=== PATIENT | female | born 1980 | race Caucasian/White ===

== ENCOUNTER 2023-08-04 06:48 | Inpatient (IN) | payer SELFPAY ==
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
[2023-08-04] MEDS: ziprasidone 20 mg/mL SDV IM (07:05)
[2023-08-04] MEDS: LORazepam 2 mg/mL INJ 10 mL MDV IM (07:28)
[2023-08-04] MEDS: water for injection-sterile 10 ML (07:28)
[2023-08-04 08:00] VITALS: PULSE 93; O2SAT 97
[2023-08-04 08:10] LABS: Basophils % 0.4 %; Eosinophils % 0.3 %; Hematocrit 38.1 % (36-47); Lymphocytes # 1.3 10^3/uL (0.8-4.8); Lymphocytes % 12.7 %; Mean Corpuscular HGB Conc 34.9 g/dL (30-55); Mean Corpuscular Hemoglobin 33.8 pg (27-33); Mean Corpuscular Volume 96.7 fl (85-98); Mean Platelet Volume 10.5 fL (7.4-10.4); Monocytes % 10.1 %; Neutrophils % 75.9 %; Nucleated Red Blood Cells % 0 %; Platelet Count 155 10^3/cmm (157-399); Red Blood Count 3.94 10^6/uL (3.85-5.65); Red Cell Distribution Width 13.2 % (12.1-15.1); White Blood Count 10.01 10^3/uL (3.29-11.43)
[2023-08-04 08:39] LABS: Alanine Aminotransferase 54 U/L (0-33); Albumin Level 3.9 g/dL (3.5-5.2); Alkaline Phosphatase 74 U/L (35-105); Anion Gap 24.9 (5-19); Aspartate Amino Transferase 110 U/L (0-32); Blood Urea Nitrogen 13 mg/dL (6-20); Calcium 8.8 mg/dL (8.5-10.5); Carbon Dioxide 19 mmol/L (22-29); Chloride 95 mmol/L (98-107); Globulin 2.7 g/dL (1.3-4.6); Glomerular Filtration Rate 67.7 mL/min (90-130); Glucose 88 mg/dL (65-115); Osmolality Calculated 282 mOsm/kg (285-295); Sodium 136 mmol/L (136-145); Thyroid Stimulating Hormone 2.56 uIU/mL (0.27-4.20); Total Protein 6.6 g/dL (6.6-8.7)
[2023-08-04 08:41] LABS: Salicylate < 0.3 mg/dL (3-10)
[2023-08-04 08:42] LABS: Acetaminophen < 5.0 ug/mL (10-30); Alcohol Level < 10 mg/dL (0-10); Potassium 2.9 mmol/L (3.5-5.1)
--- NOTE | 2023-08-04 08:45 | ECG_ITS ---
[facility] Test Date: 2023-08-04 Pat Name: Kathy Poole Department: Room: Gender: Female Economic Developer: : 1980 Requested By: Dorinda Rhodes Order Number: [id number] Luz MD: Karyn Neil M.D. Measurements Intervals [place] Rate: 99 P: 77 VA: 127 QRS: 56 QRSD: 75 T: 54 QT: 422 QTc: 542 Interpretive Statements SINUS RHYTHM PROLONGED QT INTERVAL Poor R wave progression No previous ECG available for comparison Electronically Signed On 08-05-2023 19:20:01 CDT by Karyn Neil M.D. [id number]
--- NOTE | 2023-08-04 08:55 | PC.NURSE ---
MD aware of potassium. orde for PO potassium recieved and MD okayed to give it when PT wakes up. PT sleeping in room, oxygen sat 97 percent, breathing even and unlabored
[2023-08-04 11:02] LABS: SARS Covid-2 Antigen negative (Negative)
[2023-08-04 11:09] VITALS: PULSE 98; O2SAT 97
[2023-08-04 12:00] VITALS: BP 100/60; PULSE 98; RESP 16; TEMP 36.6; O2SAT 96
[2023-08-04] MEDS: potassium chloride ER 20 mEq Tablet 40 MEQ PO (13:53)
[2023-08-04 14:03] LABS: HCG Qualitative Urine. Negative (Negative)
[2023-08-04 14:04] LABS: Bilirubin Urine 1+ (Negative); Blood Urine Neg (Negative); Glucose Urine UA Norm (Normal); Ketones Urine 3+ (Negative); Leukocyte Esterase Urine Trace (Negative); Nitrate Urine Negative (Negative); Protein Urine 1+ (Negative); Urine Appearance SL Hazy (CLEAR); Urine Color Orange (Yellow); Urobilinogen Urine 1 mg/dL (Negative); pH Urine 5 (5-7)
[2023-08-04 14:10] LABS: Squamous Epithelial Cell Urine 15-25 /hpf (0-5)
[2023-08-04 14:11] LABS: Add Urine Culture? No; Bacteria Urine 1+ /hpf; Hyaline Casts Urine 0-4 /lpf
[2023-08-04 14:12] LABS: Amphetamines Screen Urine Positive (Negative); Barbiturates Screen Urine Negative (Negative); Benzodiazepines Screen Urine Positive (Negative); Cocaine Screen Urine Negative (Negative); Opiate Screen Urine Negative (Negative); PCP Screen Urine Negative (Negative); THC Screen Urine Positive (Negative)
[2023-08-04] MEDS: cefdinir 300 MG CAPSULE PO ×2 (14:32→20:31)
[2023-08-04 16:41] VITALS: BP 97/65; PULSE 101; RESP 18; TEMP 36.6; O2SAT 97
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
[2023-08-04 20:14] VITALS: BP 120/69; PULSE 115; RESP 20; TEMP 37; O2SAT 97
[2023-08-05 06:00] VITALS: BP 103/68; PULSE 71; RESP 16; O2SAT 99
[2023-08-05] MEDS: cefdinir 300 MG CAPSULE PO ×2 (08:33→18:19)
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
[2023-08-05 13:34] VITALS: BP 109/77; PULSE 98; RESP 18; TEMP 37.1; O2SAT 96
[2023-08-05 20:28] VITALS: BP 99/66; PULSE 75; RESP 17; TEMP 36.8; O2SAT 96
[2023-08-05] MEDS: trazodone 50 mg Tablet PO ×2 (20:46→23:42)
[2023-08-05] MEDS: cetylpyridinium Lozenge 1 EACH MUCOUS MEM (23:42)
[2023-08-06 06:00] VITALS: BP 95/65; PULSE 93; RESP 16; TEMP 36.6; O2SAT 96
[2023-08-06] MEDS: cefdinir 300 MG CAPSULE PO ×2 (08:57→17:29)
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
[2023-08-06] MEDS: cetylpyridinium Lozenge 1 EACH MUCOUS MEM ×2 (13:10→20:03)
[2023-08-06 14:00] VITALS: BP 99/64; PULSE 71; RESP 20; TEMP 36.6; O2SAT 98
[2023-08-06] MEDS: trazodone 50 mg Tablet PO ×2 (20:04→21:27)
[2023-08-06 20:32] VITALS: BP 103/69; PULSE 69; RESP 16; TEMP 36.7; O2SAT 98
[2023-08-07 06:00] VITALS: BP 102/68; PULSE 75; RESP 16; TEMP 36.8; O2SAT 98
[2023-08-07] MEDS: cefdinir 300 MG CAPSULE PO (07:34)
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
[2023-08-07 11:48] VITALS: BP 102/68; PULSE 75; RESP 16; TEMP 36.8; O2SAT 98
== END 2023-08-07 13:06 | disposition home or self-care (01) | DRG 897 ==
LOC: ER 15:09 → NP 15:18
PROVIDERS: Admitting Provider Psychiatry & Neurology Psychiatry; Emergency Provider Emergency Medicine; Visit Provider Psychiatry & Neurology Psychiatry
DX: F15.959 Other stimulant use, unspecified with stimulant-induced psychotic disorder, unspecified (principal); F15.929 Other stimulant use, unspecified with intoxication, unspecified
CPT/HCPCS: 36415; 80053; 80306; 80307; 81001; 81025; 84443; 85025; 87426; 93005; 96372; 97165; 99285; J2060; J3486; J9999